=== PATIENT | male | born 1935 | race African-American/Black ===

== ENCOUNTER → 2017-05-09 | Day surgery (SDC) | payer OTHER ==
[~2017-05-09] MED LIST: AMLO5TAB2 PO; BUDE10.2 IH; IV RINGERS,LACTATED 1000ML 1,000 ML IV ONE; LOSA1TAB25 PO; PROPOFOL 20 ML IV ONE
--- NOTE | 2017-05-09 08:12 | PDOC1 ---
HISTORY & PHYSICAL H&P Kasi Lundberg 1935 03/28/2017 03:30 PM 08/28 [place] [facility], [facility] OUR PATIENTS COME FIRST [address] [place] [address]. [phone] Patient: Kasi Lundberg Date of : 1935 Date: 03/28/2017 3:30 PM Visit Type: Consult This 82 year old male presents for H/o colorectal polyp. History of Present Illness: 1. H/o colorectal polyp Prior screening: colonoscopy. Risk Factors: h/o colon polyp. Pertinent negatives include abdominal pain, change in bowel habits, change in stool caliber, constipation, decreased appetite, diarrhea, melena, nausea, rectal bleeding, vomiting, weight gain and weight loss. Additional information: No family history of colon cancer, No family history of Crohn's/colitis, No NSAID/ ASA use and Had colonoscopy in 2009 and tubulovillous adenoma removed. Was to repeat colonoscopy in 3 yrs. Now here for scheduling colonoscopy. INTAKE COMMENTS: Intake Comments: Nurse Note: the pt is here today for a colonoscopy due to colon polyps in 2009. PROBLEM LIST: Problem Description Onset Date Chronic Notes COPD 03/28/2017 Y PAST MEDICAL/SURGICAL HISTORY (Detailed) Disease/disorder Onset Date Management Date Comments Asthma Benign prostatic hypertrophy Cancer, prostate Colonic polyp-tubulovillous adenoma colonoscopy with polypectomy 05/20/2010 COPD Diverticulosis left inguinal hernia DIAGNOSTICS HISTORY: Test Ordered Interpretation Result completed COLONOSCOPY AND BIOPSY 05/20/2010 sub mucosal mass transverse colon, rectal polyp. diverticulosis. BX:reactive colonic mucosa with hyperplastic features, benign fibroadipose tissue, tubulovillous adenoma-KR 05/20/2010 Test Ordered Ordering Comments Modifier COLONOSCOPY AND BIOPSY 05/20/2010 Gastroenterology Medications (Active): Started Medication Directions Instruction Stopped 12/14/2010 amlodipine 5 mg Tab take 1 tablet (5MG) by ORAL route every day MUST MAKE APPT AND SEE DOCTOR TO GET FUTURE REFILLS. losartan 50 mg-hydrochlorothiazide 12.5 mg tablet take 1 tablet by oral route every day 12/14/2010 Symbicort 160 mcg-4.5 mcg/Actuation Inhalation HFA Aerosol Inhaler inhale 2 puff by inhalation route 2 times every day in the morning and evening Allergies: Ingredient Reaction Medication Name Comment NO KNOWN DRUG ALLERGIES REVIEW OF SYSTEMS System Neg/Pos Details Constitutional Negative Chills, fever, malaise, weight gain and weight loss. ENMT Negative Sore throat. Eyes Negative Double vision. Respiratory Negative Dyspnea and wheezing. Cardio Negative Chest pain and irregular heartbeat/palpitations. GI Positive See HPI. GI Negative Abdominal pain, change in bowel habits, change in stool caliber, constipation, decreased appetite, diarrhea, melena, nausea, see HPI, rectal bleeding and vomiting. Negative Dysuria and hematuria. Endocrine Negative Cold intolerance and heat intolerance. Psych Negative Anxiety. Integumentary Negative Hives and rash. MS Negative Joint pain. Lyle/Lymph Negative Easy bleeding and easy bruising. Allergic/Immuno Negative Food allergies. VITAL SIGNS Time BP mm/Hg Pulse /min Resp /min Temp F Ht ft Ht in Ht cm Wt lb Wt kg BMI kg/ m2 BSA m2 O2 Sat% 3:22 PM 140/80 94 98.1 5.0 9.50 176.53 174.80 79.288 25.44 93 Time Measured by 3:22 PM Eulalia Zayas PHYSICAL EXAM: Exam Findings Details Constitutional Normal Well developed. Eyes Normal Conjunctiva - Right: Normal, Left: Normal. Sclera - Right: Normal, Left: Normal. Nasopharynx Normal Lips/teeth/gums - Normal. Neck Exam Normal Inspection - Normal. Thyroid gland - Normal. Respiratory Normal Inspection - Normal. Auscultation - Normal. Cardiovascular Normal Regular rate and rhythm. No murmurs, gallops, or rubs. Vascular Normal Pulses - Carotids: Normal, Femoral: Normal, Dorsalis pedis: Normal. Abdomen Normal Inspection - Normal. Anterior palpation - No guarding. No abdominal tenderness. No hepatic enlargement. No splenic enlargement. No hernia. No ascites. Skin Normal Inspection - Normal. Extremity Normal No edema. Psychiatric * Oriented to time, place, person and situation. Psychiatric Normal Appropriate mood and effect. Assessment/Plan # Detail Type Description 1. Assessment History of colon polyps (Z86.010). Patient Plan schedule colonoscopy at [facility] Plan Orders Further diagnostic evaluations ordered today include(s) Colonoscopy to be performed today. He is to schedule a follow-up visit with Stephanie Hamilton MD upon completion of work-up Electronically signed by: Stephanie Hamilton MD 05/03/2017 04:48 PM Document generated by: Stephanie Hamilton 05/03/2017 04:48 PM Sugey Cavazos MD, Family Practice; Ga Lam MD Internal Medicine; Verna Brown MD, Internal Medicine; Alea Hamilton MD Internal Medicine; Stephanie Hamilton MD, Gastroenterology; Charile Kaye MD, Rheumatology, S. Pasquale Varela, Physical Medicine/Rehab Jackie Orr APRN ------ 05/09/17 Patient seen and examined. No change in H&P. STEPHANIE HAMILTON MD May 09, 2017 08:12
[2017-05-09 10:20] VITALS: BP 150/76
--- NOTE | 2017-05-10 10:49 | PATHOLOGY ---
PATHOLOGY REPORT * * * * * * * * FINAL DIAGNOSIS: Colonic mucosa "transverse colon mass biopsy": - Fragments of polypoid colonic mucosa revealing hyperplastic changes consistent with hyperplastic polyp. - There is no evidence of adenomatous change, high grade dysplasia or malignancy. - See comment. COMMENT: No mass is seen. 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 Suggest radiological and clinical correlation and follow up as clinically indicated. (SHA:mml; 05/10/2017) REPORT ELECTRONICALLY SIGNED BY: Jus Mayes M.D. DATE/TIME: 05/10/2017 10:48 * * * * * * * * GROSS PATHOLOGY: Received in formalin labeled "Kasi Lundberg, transverse colon mass biopsy," are two segments of cooper soft tissue, each measuring 0.3 cm in maximum dimension. The specimen is submitted entirely in cassette A1. ([facility]; 05/09/17) INITIAL CPT CODE(S): A; 23299 Professional services [place] [place] [address] Technical services performed by [facility] at [address] [place] [address]. SPECIMEN(S) RECEIVED: A.Transverse colon mass biopsy CLINICAL HISTORY: History of colon polyps PATIENT: KASI LUNDBERG /AGE: 7 1935 (Age: 82) PATIENT #: [id number] ALT CASE #: SPECIMEN COLLECTION DATE: 05/09/2017 SPECIMEN RECEIVED DATE: 05/09/2017 [facility] - [address] [place] [address] - PHONE: [phone] * * * END OF REPORT * * *
== END | disposition home or self-care (01) ==
LOC: SURG 07:42
PROVIDERS: ATTEND Internal Medicine Gastroenterology
DX: Z09 Encounter for follow-up examination after completed treatment for conditions other than malignant neoplasm (principal); Z87.19 Personal history of other diseases of the digestive system; D49.0 Neoplasm of unspecified behavior of digestive system; K57.30 Diverticulosis of large intestine without perforation or abscess without bleeding; J44.9 Chronic obstructive pulmonary disease, unspecified; Z85.46 Personal history of malignant neoplasm of prostate
CPT/HCPCS: 45380; 88305; J2704

== ENCOUNTER 2019-01-17 23:35 | Emergency (ER) | payer OTHER ==
[~2019-01-17] VITALS: Ht 175.3 cm; Wt 79.0 kg
[~2019-01-17 23:35] MED LIST changes: +AMLO5TAB10 PO; -AMLO5TAB2 PO; -IV RINGERS,LACTATED 1000ML 1,000 ML IV ONE; -PROPOFOL 20 ML IV ONE
[2019-01-18 00:02] LABS: BASO % 0 % (0-3); EOS # 0.1 x10^3/uL (0.0-0.7); EOS % 1 % (0-3); HEMATOCRIT 40.3 % (39.0-53.0); LYMPH # 1.6 x10^3/uL (1.0-4.8); LYMPH % 17 % (24-48); MEAN CORPUSCULAR HEMOGLOBIN 30 pg (25-35); MEAN CORPUSCULAR HGB CONC 32 g/dL (31-37); MEAN CORPUSCULAR VOLUME 93 fL (79-100); MONO % 11 % (0-9); NEUT # 6.6 x10^3uL (1.8-7.7); NEUT % 70 % (31-73); PLATELET COUNT 164 x10^3/uL (140-400); RED BLOOD COUNT 4.32 x10^6/uL (4.30-5.70); RED CELL DISTRIBUTION WIDTH 13.3 % (11.5-14.5); WHITE BLOOD COUNT 9.4 x10^3/uL (4.0-11.0)
[2019-01-18] MEDS ORDERED: ALBUTEROL SULFATE 2.5 MG/3 ML NEBU. CONT NEB ONE (00:30)
[2019-01-18] MEDS ORDERED: IPRATROPIUM BROMIDE 0.5 MG/2.5 ML NEBU. NEB ONE (00:30)
[2019-01-18 00:36] LABS: CALCIUM 9.4 mg/dL (8.5-10.1); CREATININE 1.6 mg/dL (0.7-1.3); GFR 50.3; POTASSIUM 3.7 mmol/L (3.5-5.1)
[2019-01-18 00:42] LABS: ALBUMIN 3.9 g/dL (3.4-5.0); TOTAL BILIRUBIN 0.2 mg/dL (0.2-1.0); TOTAL PROTEIN 7.8 g/dL (6.4-8.2)
--- NOTE | 2019-01-18 00:47 | RAD ---
PA and lateral chest. HISTORY: Cough, short of breath PA and lateral views were taken of the chest. Lungs are free of acute infiltrates. There are granulomatous calcifications at the hilum of the lung on the left. Heart is normal in size. There is mild hyperexpansion and changes suggesting chronic obstructive pulmonary disease. There is no effusion. IMPRESSION: 1. No acute infiltrates. Electronically signed by: Vini Barahona MD (01/18/2019 12:45 AM) [facility]
--- NOTE | 2019-01-18 01:01 | PHYS DOC ---
Adult General Chief Complaint Chief Complaint: SHORTNESS OF BREATH [facility] HPI Patient is an 83-year-old male who presents with complaint of acute onset of shortness of breath that occurred while he was at home. Patient states he was watching the basketball game and ate some spicy chips when he became short of breath. He states the use his inhaler a few times but had no improvement so decided to come into the emergency room. He denies having had any chest pain. He states that the shortness breath is worsened with exertion. He denies any diaphoresis but does indicate that he became nauseated and had an episode of vomiting.[] Review of Systems Review of Systems Constitutional: Denies fever or chills [] Respiratory: Complains of shortness of breath [] Cardiovascular: No additional information not addressed in HPI [] GI: Denies abdominal pain. Complains of nausea and vomiting without diarrhea [] Integument: Denies rash or skin lesions [] Neurologic: Denies headache, focal weakness or sensory changes [] All other systems were reviewed and found to be within normal limits, except as documented in this note. Current Medications Current Medications Current Medications Medications (Trade) Dose Ordered Sig/Rita Start Time Stop Time Status Last Admin Dose Admin Albuterol Sulfate (Ventolin Neb Soln) 5 mg 1X ONCE 01/18/19 00:30 01/18/19 00:31 DC 01/18/19 00:50 5 MG Ipratropium [place] (Atrovent) 0.5 mg 1X ONCE 01/18/19 00:30 01/18/19 00:31 DC 01/18/19 00:50 0.5 MG Sodium Chloride 500 ml @ 500 mls/hr 1X ONCE 01/18/19 01:30 01/18/19 02:29 Allergies Allergies Allergies Coded Allergies Type Severity Reaction Last Updated Verified No Known Drug Allergies 05/09/17 No Physical Exam Physical Exam Constitutional: Well developed, well nourished, no acute distress, non-toxic appearance. [] HENT: Normocephalic, atraumatic, bilateral external ears normal, oropharynx moist, no oral exudates, nose normal. [] Eyes: PERRLA, EOMI, conjunctiva normal, no discharge. [] Neck: Normal range of motion, no tenderness, supple. [] Cardiovascular: Regular rate and rhythm[] Lungs & Thorax: There are fine rhonchi bilaterally to auscultation [] Abdomen: Bowel sounds normal, soft, no tenderness. [] Skin: Warm, dry, no erythema, no rash. [] Extremities: No tenderness, no cyanosis, no clubbing, ROM intact. [] Neurologic: Alert and oriented X 3, no focal deficits noted. [] Current Patient Data Vital Signs Vital Signs Date Time Temp Pulse Resp B/P (MAP) Pulse Ox O2 Delivery O2 Flow Rate FiO2 01/18/19 01:15 96 19 96 Room Air 01/18/19 00:48 1.5 01/18/19 00:15 144/65 (91) 01/17/19 23:37 98.2 98.2 Lab Values Laboratory Tests Test 01/17/19 23:40 White Blood Count 9.4 x10^3/uL (4.0-11.0) Red Blood Count 4.32 x10^6/uL (4.30-5.70) Hemoglobin 13.0 g/dL (13.0-17.5) Hematocrit 40.3 % (39.0-53.0) Mean Corpuscular Volume 93 fL (79-100) Mean Corpuscular Hemoglobin 30 pg (25-35) Mean Corpuscular Hemoglobin Concent 32 g/dL (31-37) Red Cell Distribution Width 13.3 % (11.5-14.5) Platelet Count 164 x10^3/uL (140-400) Neutrophils (%) (Auto) 70 % (31-73) Lymphocytes (%) (Auto) 17 % (24-48) L Monocytes (%) (Auto) 11 % (0-9) H Eosinophils (%) (Auto) 1 % (0-3) Basophils (%) (Auto) 0 % (0-3) Neutrophils # (Auto) 6.6 x10^3uL (1.8-7.7) Lymphocytes # (Auto) 1.6 x10^3/uL (1.0-4.8) Monocytes # (Auto) 1.0 x10^3/uL (0.0-1.1) Eosinophils # (Auto) 0.1 x10^3/uL (0.0-0.7) Basophils # (Auto) 0.0 x10^3/uL (0.0-0.2) D-Dimer (Chiquita) 0.46 ug/mlFEU (0.00-0.50) Sodium Level 143 mmol/L (136-145) Potassium Level 3.7 mmol/L (3.5-5.1) Chloride Level 102 mmol/L (98-107) Carbon Dioxide Level 28 mmol/L (21-32) Anion Gap 13 (6-14) Blood Urea Nitrogen 24 mg/dL (8-26) Creatinine 1.6 mg/dL (0.7-1.3) H Estimated GFR (Cockcroft-Gault) 50.3 BUN/Creatinine Ratio 15 (6-20) Glucose Level 196 mg/dL (70-99) H Calcium Level 9.4 mg/dL (8.5-10.1) Total Bilirubin 0.2 mg/dL (0.2-1.0) Aspartate Amino Transferase (AST) 36 U/L (15-37) Alanine Aminotransferase (ALT) 39 U/L (16-63) Alkaline Phosphatase 76 U/L (46-116) Troponin I Quantitative 0.054 ng/mL (0.000-0.055) TR-Pxa-A-Type Natriuretic Peptide 306 pg/mL (0-449) Total Protein 7.8 g/dL (6.4-8.2) Albumin 3.9 g/dL (3.4-5.0) Albumin/Globulin Ratio 1.0 (1.0-1.7) Laboratory Tests 01/17/19 23:40 Laboratory Tests 01/17/19 23:40 EKG EKG [] Interpretation Time: EKG demonstrates sinus tachycardia with a rate of 112. Radiology/Procedures Radiology/Procedures [] Impressions: PROCEDURE: CHEST PA & LATERAL PA and lateral chest. HISTORY: Cough, short of breath PA and lateral views were taken of the chest. Lungs are free of acute infiltrates. There are granulomatous calcifications at the hilum of the lung on the left. Heart is normal in size. There is mild hyperexpansion and changes suggesting chronic obstructive pulmonary disease. There is no effusion. IMPRESSION: 1. No acute infiltrates. Electronically signed by: Vini Barahona MD (01/18/2019 12:45 AM) [facility] Course & Med Decision Making Course & Med Decision Making Pertinent Labs and Imaging studies reviewed. (See chart for details) Patient moved to room upon arrival was evaluated by your medical staff after which a workup was initiated to include blood work, chest x-ray and EKG. Patient's blood work returned with findings of borderline troponin of 0.054. Workup was reviewed with patient and recommendation for admission with serial enzymes was made which patient is refusing. Patient states that he is feeling better at this time and wants to be discharged home. Patient understands that despite having no chest pain that he still could have a heart attack and that his heart may indeed be the cause of his shortness of breath. Patient und erstands and states that he will follow-up with his primary care provider and wants to sign out AGAINST MEDICAL ADVICE. Dragon Disclaimer Dragon Disclaimer This electronic medical record was generated, in whole or in part, using a voice recognition dictation system. Departure Departure Impression: Primary Impression: Dyspnea Disposition: 07 AGAINST MEDICAL ADVICE Condition: IMPROVED Referrals: ASHLEY AGUERO MD (PCP) Problem Qualifiers Primary Impression: Dyspnea Dyspnea type: unspecified Qualified Codes: R06.00 - Dyspnea, unspecified ALEX RUIZ Jr. DO January 18, 2019 01:01
[2019-01-18] MEDS ORDERED: IV NORMAL SALINE 500ML BAG 500 ML IV ONE (01:30)
[2019-01-18 02:30] VITALS: BP 154/68
--- NOTE | 2019-01-18 06:18 | EKG ---
[facility] [address] [place] [address] Test Date: 2019-01-17 Test Time: 23:42:27 Pat Name: KRYSTEN YAÑEZ Department: Room: Gender: M Crew Member: ARIC : 1935 Requested By: ALEX RUIZ Order Number: [id number] Reading MD: Measurements Intervals [place] Rate: 111 P: 64 AL: 154 QRS: -56 QRSD: 114 T: 83 QT: 342 QTc: 468 Interpretive Statements SINUS TACHYCARDIA ABNORMAL LEFT AXIS DEVIATION R-S TRANSITION ZONE IN V LEADS DISPLACED TO THE RIGHT LEFT ANTERIOR FASCICULAR BLOCK INCOMPLETE RIGHT BUNDLE BRANCH BLOCK RVH WITH REPOLARIZATION ABNORMALITY QRS(T) CONTOUR ABNORMALITY CONSIDER ANTEROSEPTAL MYOCARDIAL DAMAGE ABNORMAL ECG No previous ECG available for comparison
== END 2019-01-18 02:29 | disposition left against medical advice (07) ==
LOC: ER 23:35
DX: R06.02 Shortness of breath (principal); R05 Cough; R11.2 Nausea with vomiting, unspecified
CPT/HCPCS: 36415; 71046; 80053; 83880; 84484; 85025; 85379; 93005; 94644; 99285; J7613; J7644